=== PATIENT | male | born 1995 | race American Indian/Alaskan Native ===

== ENCOUNTER 2021-09-29 12:16 | Emergency (ER) | payer SELFPAY ==
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
[2021-09-29 14:38] VITALS: BP 133/85
== END 2021-09-29 14:39 | disposition home or self-care (01) ==
LOC: ED 12:16
DX: T24.211A Burn of second degree of right thigh, initial encounter (principal); T22.151A Burn of first degree of right shoulder, initial encounter; T24.101A Burn of first degree of unspecified site of right lower limb, except ankle and foot, initial encounter; T22.111A Burn of first degree of right forearm, initial encounter; X08.8XXA Exposure to other specified smoke, fire and flames, initial encounter; Y93.89 Activity, other specified; Y92.89 Other specified places as the place of occurrence of the external cause; Y99.8 Other external cause status
CPT/HCPCS: 99282